=== PATIENT | female | born 1990 | race Caucasian/White ===

== ENCOUNTER 2016-11-07 05:49 | Inpatient (IN) | payer OTHER ==
[2016-11-07] VITALS (23 sets, daily range): BP systolic 98–140; BP diastolic 50–82; PULSE 73–108; TEMP 97.2–98.7
[~2016-11-07] VITALS: Ht 165.1 cm; Wt 101.8 kg
[2016-11-07 06:43] LABS: MEAN CELL VOLUME 75 fl (80.0-100.0); MEAN CORPUSCULAR HGB CONC 33 g/dl (33.0-37.0); MEAN PLATELET VOLUME 9.5 fl (7.4-10.4); PLATELET COUNT 255 K/mm3 (130-400); RED BLOOD COUNT 4.73 M/mm3 (4.10-5.30); REDCELL DISTRIBUTION WIDTH-CV 15.4 % (11.5-14.5)
[2016-11-07 06:49] LABS: ADD PATHOLOGY DIFF REVIEW NO; HEMATOCRIT 35.4 % (37.0-47.0); HEMOGLOBIN 11.6 g/dl (12.5-16.0); MEAN CORPUSCULAR HEMOGLOBIN 25 pg (27.0-31.0)
[2016-11-07 07:03] LABS: BAND 4 % (0-10); EOSINOPHIL 1 % (0-4); NEUTROPHILS 69 % (42.0-75.2); PLATELET ESTIMATE NORMAL (NORMAL); TOTAL CELLS COUNTED 100
[2016-11-08 01:00] VITALS: BP 102/62; PULSE 90; TEMP 98
[2016-11-08 05:08] VITALS: BP 120/68; PULSE 68; TEMP 98.6
[2016-11-08 07:27] LABS: HEMATOCRIT 30.4 % (37.0-47.0)
[2016-11-08 08:30] VITALS: BP 123/72; PULSE 83; TEMP 98
[2016-11-08 15:30] VITALS: BP 122/65; PULSE 93; TEMP 97.8
[2016-11-08] MEDS ORDERED: MOTRIN 800800 MG/TAB PO (17:52)
[2016-11-08] MEDS ORDERED: PERCOCET 325 MG1 TA2 PO (17:53)
[2016-11-08 19:30] VITALS: BP 130/75; PULSE 83; TEMP 98.2
[2016-11-09 09:20] VITALS: BP 125/69; PULSE 78; TEMP 97.8
[2016-11-09] MEDS ORDERED: BREASTPUMP MC (09:26)
== END 2016-11-09 12:25 | disposition home or self-care (01) | DRG 775 ==
LOC: LDRO 05:49 → LDR 06:15 → OB 11:45 → LDRO 11-13 11:17
PROVIDERS: Obstetrics & Gynecology
PROC: 10E0XZZ Delivery of Products of Conception, External Approach (ICD-10-PCS; principal; 2016-11-07)
PROC: 0HQ9XZZ Repair Perineum Skin, External Approach (ICD-10-PCS; 2016-11-07)
DX: O77.0 Labor and delivery complicated by meconium in amniotic fluid (principal); O70.0 First degree perineal laceration during delivery; O99.824 Streptococcus B carrier state complicating childbirth; Z3A.39 39 weeks gestation of pregnancy; Z37.0 Single live birth
CPT/HCPCS: J2400; J2540; J2590; J7120